=== PATIENT | male | born 2000 | race Caucasian/White ===

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

== ENCOUNTER 2020-07-31 10:46 | Emergency (ER) | payer OTHER, SELFPAY ==
[2020-07-31 11:02] VITALS: BP 153/77; PULSE 83; RESP 14; TEMP 37.2; O2SAT 99
--- NOTE | 2020-07-31 11:07 | DI.RAD.S_ITS ---
PROCEDURE: XR HAND RT MIN 3V INDICATIONS: nail gun nail through knuckles. (nail out) TECHNIQUE: 3 views of the hand(s) acquired. COMPARISON: None. FINDINGS: Bones: No fractures or dislocations. Carpal bones are normally aligned. No suspicious bony lesions. Soft tissues: No suspicious soft tissue calcifications. IMPRESSION: No fracture or foreign body found. Dictated by: Paddy Blount M.D. on 07/31/2020 at 11:32 Approved by: Paddy Blount M.D. on 07/31/2020 at 11:33
[2020-07-31 14:31] VITALS: PULSE 72
--- NOTE | 2020-07-31 14:53 | ED_ITS ---
HPI - Extremity Injury (Upper) General Chief Complaint: Extremity Injury, Upper Stated Complaint: shot right hand with nail gun at work Time Seen by Provider: 07/31/20 11:38 Source: patient and family Mode of arrival: Ambulatory Limitations: no limitations History of Present Illness HPI narrative: 20-year-old male who states that he had a puncture wound to his right hand with a nail gun. Patient states the nail was clean. Went horizontally across the hand. Patient has full range of motion but was concerned about tendon involvement he noticed there was a divot immediately afterwards. Patient himself pulled the nail out. There was bleeding immediately afterwards. He denies any numbness, tingling or weakness at this time. He denies any medical issues. No allergies to medications. He states his tetanus is up-to-date. He was at work. Related Data Previous Rx's Medication Instructions Recorded doxycycline hyclate 100 mg PO BID #20 tab 07/31/20 Allergies Allergy/AdvReac Type Severity Reaction Status Date / Time Penicillins Allergy Unknown Verified 07/31/20 11:07 Review of Systems Review of Systems ROS Unobtainable: All systems reviewed & are unremarkable except as noted in HPI and below Patient History Medical History Eczema Social History Smoking Status: Never smoker Smoking Status: Never smoker alcohol intake frequency: 0-2 drinks per day Substance Use Type: does not use Exam Narrative Exam Narrative: GENERAL: Alert and oriented x three, well-nourished male in mild distress. HEENT: Head normocephalic, atraumatic, EOMI, pupils reactive, face symmetric, moist mucous membranes NECK: Supple, full range of motion EXTREMITIES: Normal range of motion, no clubbing. Patient has a 2 puncture wounds consistent with patient's injury. He has wound just adjacent to 1st metacarpal as 1 just adjacent to the 2nd. There is some slight swelling, there is no erythema, there is no active drainage or bleeding currently. Patient has full range of motion. 5/5 muscle strength of all fingers with full range of m otion of the wrist. No loss of sensation. Cap refill less than 2 seconds in all 5 fingers. Neurovascularly intact NEUROLOGICAL: Cranial nerves II through XII grossly intact. Moving all extremities SKIN: Warm, dry, no petechiae, no rashes or lesions. Initial Vital Signs Initial Vital Signs: Vital Signs Temperature 98.9 F 07/31/20 11:02 Pulse Rate 83 07/31/20 11:02 Respiratory Rate 14 07/31/20 11:02 Blood Pressure 153/77 H 07/31/20 11:02 Pulse Oximetry 99 07/31/20 11:02 Course Orders Ordered: ED Orders 07/31/20 11:07 XR hand RT min 3V Stat Vital Signs Vital signs: Vital Signs - 8 hr 07/31/20 14:31 07/31/20 15:14 Pulse Rate 90 Pulse Rate [Right Radial] 72 Respiratory Rate 14 Blood Pressure 112/78 Pulse Oximetry 99 MDM - Extremity Injury (Upper) Imaging Data Extremity x-ray #1: Radiologist's Impression: [address] [id number] ReportSigned Patient: Graciela Calloway GMR#: [id number]: [id number]:[id number]/Sex: 20 / MDate of Service: 07/31/20Loc: EDAccession Number: [id number] Procedure: XR hand RT min 3V Ordering Provider: Lydia Alegria D.O. PROCEDURE: XR HAND RT MIN 3V INDICATIONS: nail gun nail through knuckles. (nail out) TECHNIQUE: 3 views of the hand(s) acquired. COMPARISON: None. FINDINGS: Bones: No fractures or dislocations. Carpal bones are normally aligned. No suspicious bony lesions. Soft tissues: No suspicious soft tissue calcifications. IMPRESSION: No fracture or foreign body found. Dictated by: Paddy Blount M.D. on 07/31/2020 at 11:32 Approved by: Paddy Blount M.D. on 07/31/2020 at 11:33 [facility] Narrative Medical decision making narrative: Year old male with puncture wound to the right hand through the soft tissue. Does not appear to involve the bone. Patient had removed the nail himself. Patient does up-to-date on tetanus. Started on oral antibiotic and wound was cleansed here in the department. Patient was given referral Orthopedic surgery he is quite concerned about tendon involvement although he does have good range of motion and strength on exam today. Patient did have work related accident so L and I form was filled out as well. All questions were answered, return precautions discussed as patient is somewhat high risk for infection. Also discussed that he should only perform light duty and not stress or strain that finger at this time. Discharge Plan Departure Patient Disposition: Home Clinical Impression: Puncture wound of hand Instructions: DI for Puncture Wound Activity Restrictions/Additional Instructions: Follow-up with orthopedic surgery. Call for an appointment. Take antibiotics until completely gone. You may take Tylenol up to a 1000 mg every 8 hours and or ibuprofen up to 800 mg every 8 hours. Wound Care: Keep wound(s) clean and dry. Wash daily with soap and water only. Do not use over the counter products (alcohol or peroxide)on the wounds unless instructed by a physician. If wound condition worsens (increased/expanding redness, developing fluid blisters, or worsening pain), either contact your doctor for an urgent re- assessment , or return to the Emergency Department. Return to the Emergency Department for any new or worsening symptoms. Return to the ED, urgent care, or vist a primary care doctor for removal or suture or fidelina. Return if fever greater than 100.4 Fahrenheit, increased swelling, increasing pain or worsening symptoms such as increased discharge or spreading redness. Use warm compresses 3 times daily for 20 minutes to the affected area. If there is packing in place do not pull it out, if it falls out do not try to replace it. Prescriptions: New doxycycline hyclate 100 mg tablet 100 mg PO BID Qty: 20 RF: 0 Referrals: Gabe Fowler MD [Primary Care Provider] - Irma Braun MD [Physician] - Stand Alone Forms: Work Release Note
[2020-07-31 15:14] VITALS: BP 112/78; PULSE 90; RESP 14; O2SAT 99
== END 2020-07-31 15:15 | disposition home or self-care (01) ==
PROVIDERS: Emergency Provider Emergency Medicine; Family Provider Pediatrics; PCP Pediatrics
DX: S61.431A Puncture wound without foreign body of right hand, initial encounter (principal); W29.4XXA Contact with nail gun, initial encounter; Y99.0 Civilian activity done for income or pay
CPT/HCPCS: 73130; 99283

== ENCOUNTER → 2023-03-29 08:47 | Outpatient (CLI) | payer BC, SELFPAY ==
[2023-03-29 10:58] LABS: Add Manual Diff / Slide Review NO; Basophils Absolute Auto 0 /uL (0-100); Basophils Percent Auto 0.5 % (0-2); Eosinophils Absolute Auto 500 /uL (0-450); Eosinophils Percent Auto 9.7 % (2-4); Hematocrit 43.6 % (41-53); Hemoglobin 14.7 g/dL (13.5-17.5); Lymphocytes Absolute Auto 1500 /uL (1100-4500); Lymphocytes Percent Auto 27.6 % (25-40); Mean Corpuscular HGB Conc 33.7 % (30-36); Mean Corpuscular Hemoglobin 29.4 PG (26-34); Mean Corpuscular Volume 87.4 fL (80-100); Monocytes Absolute Auto 400 /uL (0-900); Monocytes Percent Auto 6.8 % (3-14); Neutrophils Absolute Auto 3000 /uL (1500-7000); Neutrophils Percent Auto 55.4 % (50-75); Platelet Count 194 X10^3/uL (150-400); Red Blood Cell Count 4.99 X10^6/uL (4.5-5.9); Red Cell Distribution Width 13.2 % (11.6-14.8); White Blood Cell Count 5.5 X10^3/uL (4.5-11.0)
[2023-03-29 11:07] LABS: Alanine Aminotransferase 37 IU/L (<50); Albumin 4.7 g/dL (3.5-5.0); Albumin Globulin Ratio 1.6 (1.0-2.8); Alkaline Phosphatase 53 U/L (38-126); Aspartate Aminotransferase 37 IU/L (17-59); BUN Creatinine Ratio 24.3 (6-22); Bilirubin Total 0.6 mg/dL (0.2-1.3); Blood Urea Nitrogen 18 mg/dL (9-20); Calcium 9.6 mg/dL (8.4-10.2); Carbon Dioxide 27 mmol/L (22-32); Chloride 102 mmol/L (98-107); Cholesterol 157 mg/dL (140-199); Estimated Glomerular Filt Rate > 60 mL/min (>60); Glucose 92 mg/dL (70-100); HDL Cholesterol 69 mg/dL (40-60); HEMOLYSIS < 15 (0-50); LDL Cholesterol Calculated 81 mg/dL (<100); Potassium 5.1 mmol/L (3.4-5.1); Sodium 138 mmol/L (137-145); Total Protein 7.7 g/dL (6.3-8.2); Triglycerides 34 mg/dL (35-150)
[2023-03-29 12:11] LABS: Thyroid Stimulating Hormone 1.99 uIU/mL (0.47-4.68)
== END ==
LOC: LAB 08:48
PROVIDERS: Family Provider Pediatrics; PCP Naturopath; Referring Provider Naturopath; Visit Provider Naturopath
DX: Z00.00 Encounter for general adult medical examination without abnormal findings (principal); Z83.49 Family history of other endocrine, nutritional and metabolic diseases
CPT/HCPCS: 36415; 80053; 80061; 84443; 85025

== ENCOUNTER 2024-12-02 13:35 | Emergency (ER) | payer OTHER, SELFPAY ==
[2024-12-02 13:39] VITALS: BP 139/74; PULSE 74; RESP 17; TEMP 36.9; O2SAT 98; BMI 26.4
--- NOTE | 2024-12-02 14:43 | ED.WOUNDLAC ---
HPI - Wound/Laceration <Sarah Beth Lyle PA-C - Last Filed: 12/02/24 18:16> General Chief Complaint: Wound/Laceration Stated Complaint: knife injury lt thigh Time Seen by Provider: 12/02/24 14:24 Source: patient Mode of arrival: Ambulatory History of Present Illness HPI narrative: Mr. Calloway is a very pleasant 24-year-old male with no reported past medical history who presents to emergency department for a knife wound to his left thigh that occurred prior to arrival. Patient was cutting wood with a utility knife, at work, when he accidentally stabbed himself in the left mid thigh region. Tdap is up-to-date, about 4 years ago. He is not on blood thinners. He is still able to ambulate without difficulty. Bleeding is controlled. No numbness tingling or weakness. He is here with his significant other. Related Data Previous Rx's ?Medication ?Instructions ?Recorded doxycycline hyclate 100 mg tablet 100 mg PO BID #20 tabs 07/31/20 Allergies Allergy/AdvReac Type Severity Reaction Status Date / Time Penicillins Allergy Unknown Verified 12/02/24 13:41 Review of Systems <Sarah Beth Lyle PA-C - Last Filed: 12/02/24 18:16> Review of Systems ROS Unobtainable: All systems reviewed & are unremarkable except as noted in HPI and below Patient History <Sarah Beth Lyle PA-C - Last Filed: 12/02/24 18:16> Medical History Eczema Social History Smoking Status: Never smoker Smoking Status: Never smoker alcohol intake frequency: 0-2 drinks per day Exam <Sarah Beth Lyle PA-C - Last Filed: 12/02/24 18:16> Narrative Exam Narrative: GENERAL: 24 year old patient appears stated age. Well-developed patient, in no acute distress. HEAD: Atraumatic. Normocephalic. CARDIOVASCULAR: Regular rate RESPIRATORY: ?Nonlabored respirations. ?Speaking in clear, full sentences. EXTREMITIES: 2+ DP and PT pulses BL. On the anterior mid left thigh there is a 3 cm linear laceration that extends into the fatty tissue. Bleeding is controlled with direct pressure. 5/5 bilateral knee flexion-extension strength. NEURO: AOx3. ?Clear speech. ?Moves all 4 extremities appropriately. Sensation intact to light touch in the bilateral lower extremities. SKIN: Left thigh laceration described above Initial Vital Signs Initial Vital Signs: Vital Signs Temperature 98.5 F 12/02/24 13:39 Pulse Rate 74 12/02/24 13:39 Respiratory Rate 17 12/02/24 13:39 Blood Pressure 139/74 12/02/24 13:39 Pulse Oximetry 98 12/02/24 13:39 Oxygen Delivery Method Room Air 12/02/24 13:39 <Kaushik Simpson MD - Last Filed: 12/02/24 18:24> Initial Vital Signs Initial Vital Signs: Vital Signs Temperature 98.5 F 12/02/24 13:39 Pulse Rate 74 12/02/24 13:39 Respiratory Rate 17 12/02/24 13:39 Blood Pressure 139/74 12/02/24 13:39 Pulse Oximetry 98 12/02/24 13:39 Oxygen Delivery Method Room Air 12/02/24 13:39 Procedures <Sarah Beth Lyle PA-C - Last Filed: 12/02/24 18:16> Laceration Repair Laceration 1: Site: lower extremity (anterior, mid-thigh ) Side (If applicable): left Size (cm): 3 Description: linear Depth: simple, single layer (involves subcutaneous layer ) Local Anesthetic: lidocaine 1% and with epi Amount of anesthesia used (mL): 4 Pre-repair: wound explored, irrigated extensively (Wound irrigated extensively with normal saline and diluted Betadine) and deep structures intact Skin layer closed with: nylon Skin layer suture size: 4-0 Number of sutures: 3 Technique: simple, interrupted Course <Sarah Beth Lyle PA-C - Last Filed: 12/02/24 18:16> Orders Ordered: Discontinued Medications Bacitracin (Bacitracin Oint 0.9 Gm Pckt) 1 applic TOP NOW ONE Stop: 12/02/24 15:07 Last Admin: 12/02/24 15:21 Dose: 1 applic Documented By: ABE Lidocaine/Epinephrine (Lidocaine 1% W/Epi 10ml) 10 ml INJ NOW ONE Stop: 12/02/24 15:07 Last Admin: 12/02/24 15:22 Dose: 5 ml Documented By: ABE Vital Signs Vital signs: Vital Signs - 8 hr 12/02/24 13:39 Temperature 98.5 F Pulse Rate 74 Respiratory Rate 17 Blood Pressure 139/74 Pulse Oximetry 98 Oxygen Delivery Method Room Air <Kaushik Simpson MD - Last Filed: 12/02/24 18:24> Orders Ordered: Discontinued Medications Bacitracin (Bacitracin Oint 0.9 Gm Pckt) 1 applic TOP NOW ONE Stop: 12/02/24 15:07 Last Admin: 12/02/24 15:21 Dose: 1 applic Documented By: ABE Lidocaine/Epinephrine (Lidocaine 1% W/Epi 10ml) 10 ml INJ NOW ONE Stop: 12/02/24 15:07 Last Admin: 12/02/24 15:22 Dose: 5 ml Documented By: ABE Vital Signs Vital signs: Vital Signs - 8 hr 12/02/24 13:39 Temperature 98.5 F Pulse Rate 74 Respiratory Rate 17 Blood Pressure 139/74 Pulse Oximetry 98 Oxygen Delivery Method Room Air MDM - Wound/Laceration <Sarah Beth Lyle PA-C - Last Filed: 12/02/24 18:16> Medical Records Attestation: I reviewed the patient's medical records. [facility] Narrative Medical decision making narrative: 24-year-old male with no reported past medical history presents to emergency department for a knife wound to his left thigh that occurred prior to arrival. Differential diagnosis includes but isn't limited to laceration, foreign body, etc. On exam patient is in no acute distress, nontoxic appearing, vital signs within normal limits. He has a linear laceration/stab wound to the anterior left thigh. He is neurovascularly intact distal to the wound. His Tdap is up-to-date. We will anesthetize, irrigate and cleanse and repair. Wound was anesthetized, irrigated and cleansed extensively and repaired using 3 simple interrupted sutures. Applied bacitracin, Telfa, Delta wrap bandage. Discussed proper wound care, suture removal in 8-10 days, PCP follow up, ER return precautions. Patient verbalized understanding of all information agreeable to the plan. He is ambulatory and stable for discharge home with his significant other. Discharge Plan Departure Patient Disposition: Home Clinical Impression: Laceration of left thigh Qualifiers: Encounter type: initial encounter Qualified Code(s): S71.112A - Laceration without foreign body, left thigh, initial encounter Instructions: DI for Laceration Repair Activity Restrictions/Additional Instructions: Dear Mr. Calloway, Thank you for coming to the emergency department. Today you had a laceration to your left thigh. We have placed 3 sutures. They need to be removed in 8-10 days. You may do this in your doctor's office, the [id number], or here if necessary. Please keep the dressing on your wound clean, dry, and intact for the next 24 hours. After this time, you may remove the dressing and gently clean the wound with soap and water, then pat dry. Keep the wound clean and covered. Avoid soaking the wound in any water such as a bath, pool, or the ocean. If you develop any signs of wound infection such as increased redness, pus drainage, streaking redness, or fevers, please return to the ER immediately for evaluation. Once sutures are removed and the wound has healed, apply sunscreen daily to reduce the appearance of scars. Please use RICE therapy for your pain in addition to ibuprofen/acetaminophen. Rest the painful area. Ice the area of pain/swelling for at least 15 minutes, 4x a day. Compress the area of swelling using a brace, wrap, or splint if applied. Elevate the painful or swollen extremity by supporting it above the level of the heart with pillows when sitting or laying. Please follow up with your primary care doctor within the next 2-3 days for ER follow-up. (If you do not have a PCP you can call [phone]. ?to schedule an appointment with an [facility] Primary Care Provider) IF YOU DEVELOP ANY NEW OR WORSENING SYMPTOMS, RETURN TO THE ER! Please read the attached instructions, they highlight more specific treatments and interventions for you at home. Thank you for letting me participate in your care, Sarah Beth Lyle PA-C Prescriptions: No Action doxycycline hyclate 100 mg tablet 100 mg PO BID Qty: 20 0RF Referrals: Erika Dorado ND [Primary Care Provider, Naturopathy] Stand Alone Forms: Patient Portal/API, Work Release Note ED Sign-out <Kaushik Simpson MD - Last Filed: 12/02/24 18:24> Cosign ED Attending Cosneerajature Attestation: I was immediately available in the department for consultation. ?This documentation has been reviewed and I agree with assessment and plan. Supervised by Kaushik Simpson MD
[2024-12-02] MEDS: BACITRACIN OINT 0.9 GM PCKT 1 APPLIC TOP (15:21)
[2024-12-02] MEDS: LIDOCAINE 1% W/EPI 10ML 10 ML INJ (15:22)
== END 2024-12-02 15:58 | disposition home or self-care (01) ==
PROVIDERS: Emergency Provider Physician Assistant; Family Provider Pediatrics; PCP Naturopath
DX: S71.112A Laceration without foreign body, left thigh, initial encounter (principal); W26.0XXA Contact with knife, initial encounter
CPT/HCPCS: 12002; 99283